=== PATIENT | male | born 1985 | race Caucasian/White ===

== ENCOUNTER 2020-07-26 19:26 | Emergency (ER) | payer MEDICAID ==
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
[2020-07-26] MEDS ORDERED: Nicotine 21 MG/24 Hr Patch TRDERM ONE (21:09)
[2020-07-26] MEDS ORDERED: LORazepam 1 MG Tab PO ONE (23:02)
--- NOTE | 2020-07-27 14:17 | CT ---
Cervical Spine wo Cont CLINICAL HISTORY: Hanging TECHNIQUE: Multiple CT sections were taken through the cervical spine in the transaxial projection. Coronal and sagittal views were reconstructed. Images were viewed at bone as well as soft tissue windows on a digital workstation. Auto dosage reduction and iterative reconstruction techniques employed. FINDINGS: Sagittal images show the vertebral body heights the maintained. Alignment is maintained. The prevertebral soft tissues are normal appearance. There is mild diffuse disc space narrowing. Facets are well articulated. Infraspinatus processes are intact. Axial images show no obvious disc protrusion or fracture. Pedicles appear intact. IMPRESSION: No fracture or dislocation
[2020-07-27] MEDS ORDERED: LORazepam 1 MG Tab PO ONE (14:42)
== END 2020-07-27 15:20 ==
LOC: JP.ED 19:26
DX: T71.162A Asphyxiation due to hanging, intentional self-harm, initial encounter (principal); F17.210 Nicotine dependence, cigarettes, uncomplicated; Z88.0 Allergy status to penicillin
CPT/HCPCS: 36415; 72125; 80048; 80305; 80307; 81001; 84443; 85027; 99285; A9270

== ENCOUNTER 2022-04-18 21:01 | Emergency (ER) | payer MEDICAID | END 2022-04-18 22:57 | disposition left against medical advice (07) | LOC: JP.ED 21:01 | DX: Z53.21 Procedure and treatment not carried out due to patient leaving prior to being seen by health care provider (principal) ==

== ENCOUNTER 2023-08-04 18:44 | Emergency (ER) | payer MEDICAID ==
[2023-08-04] MEDS ORDERED: Diphtheria,Pertussis(Acell),Tetanus Vaccine 0.5 ML Syringe IM ONE (19:10)
== END 2023-08-04 19:38 | disposition home or self-care (01) ==
LOC: JP.ED 18:44
DX: S91.331A Puncture wound without foreign body, right foot, initial encounter (principal); F17.210 Nicotine dependence, cigarettes, uncomplicated; Z23 Encounter for immunization; Z88.0 Allergy status to penicillin; W22.8XXA Striking against or struck by other objects, initial encounter
CPT/HCPCS: 90471; 90715; 99283-25